=== PATIENT | female | born 1990 | race Caucasian/White ===

== ENCOUNTER 2019-03-14 15:07 | Emergency (ER) | payer OTHER ==
[~2019-03-14] VITALS: Ht 170.2 cm; Wt 65.8 kg
== END 2019-03-14 16:53 | disposition home or self-care (01) ==
LOC: ED 15:07
DX: S83.92XA Sprain of unspecified site of left knee, initial encounter (principal); X50.1XXA Overexertion from prolonged static or awkward postures, initial encounter
CPT/HCPCS: 73560; 99283